=== PATIENT | female | born 1985 | race Caucasian/White ===

== ENCOUNTER 2018-12-12 09:12 | Inpatient (IN) | payer MEDICAID ==
[2018-12-16] MEDS ORDERED: Nalbuphine 20 MG/ML 1 ML Syringe IVPUSH PRN (15:28)
[2018-12-16] MEDS ORDERED: Sodium Chloride 0.9% 10 ML Syringe FLUSH PRN (15:28)
[2018-12-16] MEDS ORDERED: Ondansetron 4 MG/2 ML SDV IVPUSH PRN ×2 (15:28→16:21)
[2018-12-16] MEDS ORDERED: Oxytocin/Lactated Ringers 10 UNIT/1,000 ML BAG IV SCH ×2 (15:30)
--- NOTE | 2018-12-16 15:30 | PCM.LDHP ---
L&D History of Present Illness - General Date of Service: 12/16/18 Admit Problem/Dx: Patient Status Order with Admit Dx/Problem 12/16/18 15:28 Patient Status [ADT] Routine Admission Diagnosis/Problem Admission Diagnosis/Problem Normal Source of Information: Patient History Limitations: Reports: No Limitations - History of Present Illness Introduction:: Patient is a 33 y/o at 40 4/7 wks who presents for IOL. Doing well. 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: 2 LMP (Approximate): Neurological History: Reports: Headaches, Chronic - Infectious Disease History Infectious Disease History: Reports: MRSA - Past Surgical History HEENT Surgical History: Reports: Oral Surgery (tooth extraction) Female Surgical History: Reports: Section Social & Family History - Tobacco Use Smoking Status *Q: Never Smoker - Alcohol Use Alcohol Use History: No - Recreational Drug Use Recreational Drug Use: No H&P Review of Systems - Review of Systems: Review Of Systems: See Below General: Reports: No Symptoms Pulmonary: Reports: No Symptoms Cardiovascular: Reports: No Symptoms Gastrointestinal: Reports: No Symptoms Genitourinary: Reports: No Symptoms Musculoskeletal: Reports: No Symptoms Psychiatric: Reports: No Symptoms Neurological: Reports: No Symptoms L&D Exam - Exam Exam: See Below - OB Specific Contraction Intensity: Irritability Movement: Active Heart Tones: Present Heart Tones per Min: 135 Heart Rate (FHR) Variability: Moderate (6-25 bmp) Presentation: Vertex - Fuentes Score Fuentes Score Cervix Position: Midposition Fuentes Score Consistency: Soft Fuentes Score Effacement: 51-70% Fuentes Score Dilation: 3-4 cm Fuentes Score Infant's Station: -2 Fuentes Score Total: 8 - Exam General: Alert, Oriented, Cooperative Lungs: Clear to Auscultation, Normal Respiratory Effort Cardiovascular: Regular Rate, Regular Rhythm GI/Abdominal Exam: Soft, Non-Tender Genitourinary: Normal external exam Extremities: Normal Inspection Skin: Warm, Dry, Intact - Patient Data Result Diagrams: 12/16/18 15:48 - Problem List (1) 40 weeks gestation of SNOMED Code(s): 31167126 ICD Code: Z3A.40 - 40 WEEKS GESTATION OF Status: Acute Current Visit: Yes (2) History of SNOMED Code(s): 197692126 ICD Code: Z98.891 - HISTORY OF UTERINE SCAR FROM PREVIOUS SURGERY Status: Acute Current Visit: Yes Problem List Initiated/Reviewed/Updated: Yes Orders Last 24hrs: Active Orders 24 hr Category Date Time Status Patient Status [ADT] Routine ADT 12/16/18 15:28 Ordered Communication Order [RC] ASDIRECTED Care 12/16/18 15:28 Ordered Communication Order [RC] ASDIRECTED Care 12/16/18 15:28 Ordered Communication Order [RC] ASDIRECTED Care 12/16/18 15:28 Ordered Heart Tones [RC] ASDIRECTED Care 12/16/18 15:28 Ordered Monitoring [RC] INTERMITTENT Care 12/16/18 15:28 Ordered Non Stress Test [RC] PER UNIT ROUTINE Care 12/16/18 15:28 Ordered Notify Provider [RC] ASDIRECTED Care 12/16/18 15:28 Ordered Notify Provider [RC] PFP Care 12/16/18 15:28 Ordered Notify Provider [RC] PRN Care 12/16/18 15:28 Ordered Peripheral IV Care [RC] . DIRECTED Care 12/16/18 15:28 Ordered Vaginal Exam [RC] ASDIRECTED Care 12/16/18 15:28 Ordered Vital Signs [RC] ASDIRECTED Care 12/16/18 15:28 Ordered Regular Diet [DIET] Diet 12/16/18 Dinner Ordered CBC W/O DIFF,HEMOGRAM [HEME] Routine Lab 12/16/18 15:28 Ordered RAPID PLASMA REAGIN,RPR [CHEM] Routine Lab 12/16/18 15:28 Ordered TYPE AND SCREEN [BBK] Routine Lab 12/16/18 15:28 Ordered Lactated Ringers [Ringers, Lactated] 1,000 ml Med 12/16/18 15:30 Ordered IV ASDIRECTED Nalbuphine [Nubain] Med 12/16/18 15:28 Ordered 10 mg IVPUSH Q2H PRN Ondansetron [Zofran] Med 12/16/18 15:28 Ordered 4 mg IVPUSH Q4H PRN Oxytocin/Lactated Ringers [Pitocin in LR 10 Units/1,000 Med 12/16/18 15:30 Ordered ML] 10 unit in 1,000 ml IV .CONTINUOUS Oxytocin/Lactated Ringers [Pitocin in LR 10 Units/1,000 Med 12/16/18 15:30 Ordered ML] 10 unit in 1,000 ml IV TITRATE Sodium Chloride 0.9% [Saline Flush] Med 12/16/18 15:28 Ordered 10 ml FLUSH ASDIRECTED PRN Electronic Heart Tones Ext w TOCO [WOMSER] Ot 12/16/18 15:28 Ordered Routine Electronic Heart Tones Internal [WOMSER] Per Unit Ot 12/16/18 15:28 Ordered Routine Peripheral IV Insertion Adult [OM.PC] Routine Oth 12/16/18 15:28 Ordered Resuscitation Status Routine Resus Stat 12/16/18 15:28 Ordered Assessment/Plan Comment:: 33 y/o at 40 4/7 wks presents for IOL (hx of for FTP in 1st and then successful ) * Labs * GBS negative, no need for antibiotics * Pitocin and AROM for IOL * Pain management per patient preference * Anticipate
[2018-12-16] MEDS: Lactated Ringers 1,000 ML IV SCH ×3 (15:51→20:29)
[2018-12-16] MEDS ORDERED: fentaNYL 100 MCG/2 ML SDV EPIDUR PRN (16:21)
[2018-12-16] MEDS ORDERED: ePHEDrine 50 MG/ML SDV IVPUSH PRN (16:21)
--- NOTE | 2018-12-16 16:28 | PCM.PREANE ---
Preanesthetic Assessment - Anesthesia/Transfusion/Family Hx Anesthesia History: Prior Anesthesia Without Reaction Family History of Anesthesia Reaction: No Transfusion History: No Prior Transfusion(s) Intubation History: Unknown - Review of Systems General: No Symptoms Pulmonary: No Symptoms Cardiovascular: No Symptoms, Orthopnea (with ) Gastrointestinal: No Symptoms (GERD) Neurological: Headache (migraines) Other: Reports: None, Easy Bruising - Physical Assessment NPO Status Date: 12/16/18 NPO Status Time: 12:00 Pulse: 106 O2 Sat by Pulse Oximetry: 97 Respiratory Rate: 18 Blood Pressure: 138/82 Temperature: 37.2 C Vital Signs: Last Vital Signs Temp 37.2 C 12/16/18 16:11 Pulse Resp 18 12/16/18 16:11 BP 138/82 12/16/18 16:11 Pulse Ox 97 12/16/18 16:11 Height: 1.68 m Weight: 92.986 kg ASA Class: 2 Mental Status: Alert & Oriented x3 Airway Class: Mallampati = 2 Dentition: Reports: Normal Dentition, Caries Thyro-Mental Finger Breadths: 3 Mouth Opening Finger Breadths: 3 ROM/Head Extension: Full Lungs: Clear to Auscultation, Normal Respiratory Effort Cardiovascular: Regular Rate, Regular Rhythm (history of heart murmur/ unable to hear) - Lab Values: Laboratory Last Values WBC 10.93 K/mm3 (3.98-10.04) H 12/16/18 15:48 RBC 4.15 M/mm3 (3.98-5.22) 12/16/18 15:48 Hgb 9.2 gm/L (11.2-15.7) L 12/16/18 15:48 Hct 30.0 % (34.1-44.9) L 12/16/18 15:48 MCV 72.3 fl (79.4-94.8) L 12/16/18 15:48 MCH 22.2 pg (25.6-32.2) L 12/16/18 15:48 MCHC 30.7 g/dl (32.2-35.5) L 12/16/18 15:48 RDW Std Deviation 38.6 fL (36.4-46.3) 12/16/18 15:48 Plt Count 250 K/mm3 (182-369) 12/16/18 15:48 MPV 11.0 fl (9.4-12.3) 12/16/18 15:48 Above labs reviewed and noted and within acceptable ranges to proceed with epidural. - Allergies Allergies/Adverse Reactions: Allergies Allergy/AdvReac Type Severity Reaction Status Date / Time No Known Allergies Allergy Verified 12/16/18 15:44 - Anesthesia Plan Pre-Op Medication Ordered: None - Acknowledgements Anesthesia Type Planned: Epidural Pt an Appropriate Candidate for the Planned Anesthesia: Yes Alternatives and Risks of Anesthesia Discussed w Pt/Guardian: Yes Pt/Guardian Understands and Agrees with Anesthesia Plan: Yes PreAnesthesia Questionnaire - CURRENT (IN HOUSE) MEDS Current Meds: Current Medications Lactated Ringer's (Ringers, Lactated) 1,000 mls @ 40 mls/hr IV ASDIRECTED AHLLE Last Admin: 12/16/18 15:51 Dose: 40 mls/hr Oxytocin/Lactated Ringer's (Pitocin In Lr 10 Units/1,000 Ml) 10 unit in 1,000 mls @ 12 mls/hr IV TITRATE HALLE; Protocol Last Admin: 12/16/18 15:59 Dose: 2 munits/min, 12 mls/hr Oxytocin/Lactated Ringer's (Pitocin In Lr 10 Units/1,000 Ml) 10 unit in 1,000 mls @ 500 mls/hr IV .CONTINUOUS HALLE Nalbuphine HCl (Nubain) 10 mg IVPUSH Q2H PRN PRN Reason: pain Ondansetron HCl (Zofran) 4 mg IVPUSH Q4H PRN PRN Reason: Nausea/Vomiting Sodium Chloride (Saline Flush) 10 ml FLUSH ASDIRECTED PRN PRN Reason: Keep Vein Open
[2018-12-16] MEDS ORDERED: Phenylephrine 1 MG in Sodium Chloride 0.9% 10 ML IV SCH (16:30)
[2018-12-16] MEDS ORDERED: fentaNYL/Bupivacaine-NS 2 MCG/ML-0.125%/PF 100 ML Bag EP SCH (16:30)
[2018-12-16] MEDS ORDERED: Bupivacaine 0.25% 10 ML SDV ONE (17:00)
--- NOTE | 2018-12-16 22:13 | PCM.DEL ---
L & D Note - General Info Date of Service: 12/16/18 - Delivery Note Labor: Induced by ARM, Induced by Oxytocin Delivery Outcome: Livebirth Infant Delivery Method: Spontaneous Vaginal Delivery-Single Infant Delivery Mode: Spontaneous Presentation: Left Occiput Anterior (KORIN) Nuchal Cord: None Anesthesia Type: Epidural Amniotic Fluid Description: Clear Episiotomy Type: None Laceration: 2nd Degree Suture type: Vicryl Placenta: Intact, Spontaneous Cord: 3 Vessels Estimated Blood Loss: 200 : Bulb Syringe, Stimulated, Warmed, Fisher Used, Warmer Used Delivery Comments (Free Text/Narrative):: Patient found to be complete and began pushing. With pushing effort head delivered from KORIN presentation. No nuchal cord present. With gentle downward traction the shoulders and body delivered. placed on maternal abdomen. Cord clamped and cut. Cord blood obtained. Placenta allowed time to separate and expelled intact. Inspection of the perineum showed a 2nd degree laceration which was repaired in the typical fashion. - General Info Date of Service: 12/16/18 - Patient Data Vitals - Most Recent: Last Vital Signs Temp 37.2 C 12/16/18 16:31 Pulse 106 H 12/16/18 16:31 Resp 18 12/16/18 16:31 BP 138/82 12/16/18 16:31 Pulse Ox 97 12/16/18 16:31 Weight - Most Recent: 92.986 kg I&O - Last 24 Hours: Intake & Output 12/16/18 12/16/18 12/16/18 06:59 14:59 22:59 Intake Total 140 Balance 140 Lab Results Last 24 Hours: Laboratory Results - last 24 hr 12/16/18 12/16/18 Range/Units 15:48 15:48 WBC 10.93 H (3.98-10.04) K/mm3 RBC 4.15 (3.98-5.22) M/mm3 Hgb 9.2 L (11.2-15.7) gm/L Hct 30.0 L (34.1-44.9) % MCV 72.3 L (79.4-94.8) fl MCH 22.2 L (25.6-32.2) pg MCHC 30.7 L (32.2-35.5) g/dl RDW Std Deviation 38.6 (36.4-46.3) fL Plt Count 250 (182-369) K/mm3 MPV 11.0 (9.4-12.3) fl Blood Type O POSITIVE Gel Antibody Screen Negative Med Orders - Current: Current Medications Ephedrine Sulfate (Ephedrine Sulfate) 5 mg IVPUSH ASDIRECTED PRN PRN Reason: Hypotension Fentanyl (Sublimaze) 100 mcg EPIDUR Q3H PRN PRN Reason: Pain Last Admin: 12/16/18 19:11 Dose: 100 mcg Fentanyl/Bupivacaine HCl (Uyujeofk-Kljsv-Wg 2 Mcg/Ml-0.125%) 100 ml EP ASDIRECTED HALLE Last Admin: 12/16/18 19:11 Dose: 100 ml Lactated Ringer's (Ringers, Lactated) 1,000 mls @ 40 mls/hr IV ASDIRECTED HALLE Last Admin: 12/16/18 20:29 Dose: 40 mls/hr Oxytocin/Lactated Ringer's (Pitocin In Lr 10 Units/1,000 Ml) 10 unit in 1,000 mls @ 12 mls/hr IV TITRATE HALLE; Protocol Last Titration: 12/16/18 19:05 Dose: 4 munits/min, 24 mls/hr Oxytocin/Lactated Ringer's (Pitocin In Lr 10 Units/1,000 Ml) 10 unit in 1,000 mls @ 500 mls/hr IV .CONTINUOUS HALLE Phenylephrine HCl 1 mg/ Sodium (Chloride) 10.1 mls @ 1 mls/sec IV TITRATE HALLE; Protocol Nalbuphine HCl (Nubain) 10 mg IVPUSH Q2H PRN PRN Reason: pain Ondansetron HCl (Zofran) 4 mg IVPUSH Q4H PRN PRN Reason: Nausea/Vomiting Ondansetron HCl (Zofran) 4 mg IVPUSH ONETIME PRN PRN Reason: Nausea/Vomiting Sodium Chloride (Saline Flush) 10 ml FLUSH ASDIRECTED PRN PRN Reason: Keep Vein Open - Problem List & Annotations (1) 40 weeks gestation of SNOMED Code(s): 16333985 Code(s): Z3A.40 - 40 WEEKS GESTATION OF Status: Acute Current Visit: Yes (2) History of SNOMED Code(s): 579809029 Code(s): Z98.891 - HISTORY OF UTERINE SCAR FROM PREVIOUS SURGERY Status: Acute Current Visit: Yes (3) , delivered, current hospitalization SNOMED Code(s): 946548690 Code(s): O34.219 - MATERNAL CARE FOR UNSP TYPE SCAR FROM PREVIOUS DEL Status: Acute Current Visit: Yes - Problem List Review Problem List Initiated/Reviewed/Updated: Yes - My Orders Last 24 Hours: My Active Orders 12/16/18 15:28 Patient Status [ADT] Routine Communication Order [RC] ASDIRECTED Communication Order [RC] ASDIRECTED Communication Order [RC] ASDIRECTED Heart Tones [RC] ASDIRECTED Monitoring [RC] INTERMITTENT Non Stress Test [RC] PER UNIT ROUTINE Notify Provider [RC] ASDIRECTED Notify Provider [RC] PFP Notify Provider [RC] PRN Vaginal Exam [RC] ASDIRECTED Vital Signs [RC] ASDIRECTED Nalbuphine [Nubain] 10 mg IVPUSH Q2H PRN Ondansetron [Zofran] 4 mg IVPUSH Q4H PRN Sodium Chloride 0.9% [Saline Flush] 10 ml FLUSH ASDIRECTED PRN Electronic Heart Tones Ext w TOCO [WOMSER] Routine Electronic Heart Tones Internal [WOMSER] Per Unit Routine Peripheral IV Insertion Adult [OM.PC] Routine Resuscitation Status Routine 12/16/18 15:30 Lactated Ringers [Ringers, Lactated] 1,000 ml IV ASDIRECTED Oxytocin/Lactated Ringers [Pitocin in LR 10 Units/1,000 ML] 10 unit in 1,000 ml IV .CONTINUOUS Oxytocin/Lactated Ringers [Pitocin in LR 10 Units/1,000 ML] 10 unit in 1,000 ml IV TITRATE 12/16/18 15:48 RAPID PLASMA REAGIN,RPR [CHEM] Routine 12/16/18 22:01 Patient Status Manage Transfer [TRANSFER] Routine 12/16/18 Dinner Regular Diet [DIET] - Assessment Assessment:: 33 y/o G3 now P3003 PPD#0 from at 40 4/7 wks - Plan Plan:: * Routine cares * Encourage breast feeding * Discharge home in 1-2 days
[2018-12-16] MEDS ORDERED: Acetaminophen 325 MG Tab PO PRN (22:26)
[2018-12-16] MEDS ORDERED: Lanolin 100% Cream 7 GM Tube TOP PRN (22:26)
[2018-12-16] MEDS ORDERED: Benzocaine/Menthol 20%-0.5% Spray 56 GM Canister TOP PRN (22:26)
[2018-12-16] MEDS ORDERED: Witch Hazel Medicated Pads 100/Jar TOP PRN (22:26)
[2018-12-16] MEDS ORDERED: Docusate Sodium 100 MG Cap PO PRN (22:26)
[2018-12-16] MEDS: Ibuprofen 600 MG Tab PO PRN (23:32)
--- NOTE | 2018-12-17 06:48 | PCM.PNPP ---
- General Info Date of Service: 12/17/18 Functional Status: Reports: Pain Controlled, Tolerating Diet, Ambulating, Urinating - Review of Systems General: Reports: No Symptoms Pulmonary: Reports: No Symptoms Cardiovascular: Reports: No Symptoms Gastrointestinal: Reports: No Symptoms Genitourinary: Reports: No Symptoms Musculoskeletal: Reports: No Symptoms Neurological: Reports: No Symptoms - Patient Data Vital Signs - Most Recent: Last Vital Signs Temp 36.7 C 12/17/18 03:58 Pulse 60 12/17/18 03:58 Resp 18 12/17/18 03:58 BP 137/80 12/17/18 03:58 Pulse Ox 100 12/17/18 03:58 Weight - Most Recent: 92.986 kg I&O - Last 24 Hours: Intake & Output 12/16/18 12/16/18 12/17/18 14:59 22:59 06:59 Intake Total 4115 Balance 4115 Lab Results - Last 24 Hours: Laboratory Results - last 24 hr 12/16/18 12/16/18 Range/Units 15:48 15:48 WBC 10.93 H (3.98-10.04) K/mm3 RBC 4.15 (3.98-5.22) M/mm3 Hgb 9.2 L (11.2-15.7) gm/L Hct 30.0 L (34.1-44.9) % MCV 72.3 L (79.4-94.8) fl MCH 22.2 L (25.6-32.2) pg MCHC 30.7 L (32.2-35.5) g/dl RDW Std Deviation 38.6 (36.4-46.3) fL Plt Count 250 (182-369) K/mm3 MPV 11.0 (9.4-12.3) fl Blood Type O POSITIVE Gel Antibody Screen Negative Med Orders - Current: Current Medications Acetaminophen (Tylenol) 650 mg PO Q4H PRN PRN Reason: mild pain or fever Benzocaine/Menthol (Dermoplast Pain Relief [place]) 0 gm TOP ASDIRECTED PRN PRN Reason: Perineal Comfort Measure Last Admin: 12/16/18 23:31 Dose: 1 canister Docusate Sodium (Colace) 100 mg PO BID PRN PRN Reason: Constipation Emollient Ointment (Lansinoh Hpa) 0 gm TOP ASDIRECTED PRN PRN Reason: Sore Nipples Ibuprofen (Motrin) 600 mg PO Q6H PRN PRN Reason: Mild pain or fever Last Admin: 12/16/18 23:32 Dose: 600 mg Witch Mary (Tucks) 1 pad TOP ASDIRECTED PRN PRN Reason: Hemorrhoid pain Last Admin: 12/16/18 23:31 Dose: 1 tub Discontinued Medications Ephedrine Sulfate (Ephedrine Sulfate) 5 mg IVPUSH ASDIRECTED PRN PRN Reason: Hypotension Fentanyl (Sublimaze) 100 mcg EPIDUR Q3H PRN PRN Reason: Pain Last Admin: 12/16/18 19:11 Dose: 100 mcg Fentanyl/Bupivacaine HCl (Odhigjox-Lsyby-Cg 2 Mcg/Ml-0.125%) 100 ml EP ASDIRECTED HALLE Last Admin: 12/16/18 19:11 Dose: 100 ml Lactated Ringer's (Ringers, Lactated) 1,000 mls @ 40 mls/hr IV ASDIRECTED HALLE Last Admin: 12/16/18 20:29 Dose: 40 mls/hr Oxytocin/Lactated Ringer's (Pitocin In Lr 10 Units/1,000 Ml) 10 unit in 1,000 mls @ 12 mls/hr IV TITRATE HALLE; Protocol Last Titration: 12/16/18 21:50 Dose: 500 mls/hr Oxytocin/Lactated Ringer's (Pitocin In Lr 10 Units/1,000 Ml) 10 unit in 1,000 mls @ 500 mls/hr IV .CONTINUOUS HALLE Phenylephrine HCl 1 mg/ Sodium (Chloride) 10.1 mls @ 1 mls/sec IV TITRATE HALLE; Protocol Nalbuphine HCl (Nubain) 10 mg IVPUSH Q2H PRN PRN Reason: pain Ondansetron HCl (Zofran) 4 mg IVPUSH Q4H PRN PRN Reason: Nausea/Vomiting Ondansetron HCl (Zofran) 4 mg IVPUSH ONETIME PRN PRN Reason: Nausea/Vomiting Sodium Chloride (Saline Flush) 10 ml FLUSH ASDIRECTED PRN PRN Reason: Keep Vein Open - Interaction Infant Disposition, : in Room with Family Infant Interaction: Holding Infant Infant Feeding: Breastfed Infant; Nursed Well Support Person: - Recovery Exam Fundal Tone: Firm Fundal Level: 1 Fingerbreadths Below Umbilicus Fundal Placement: Midline Lochia Amount: Small Lochia Color: Rubra/Red Bladder Status: Voiding Urinary Elimination: Voided - Exam General: Alert, Oriented, Cooperative GI/Abdominal Exam: Soft, Non-Tender Extremities: Normal Inspection Skin: Warm, Dry, Intact - Problem List & Annotations (1) 40 weeks gestation of SNOMED Code(s): 46885459 Code(s): Z3A.40 - 40 WEEKS GESTATION OF Status: Acute Current Visit: Yes (2) History of SNOMED Code(s): 951784134 Code(s): Z98.891 - HISTORY OF UTERINE SCAR FROM PREVIOUS SURGERY Status: Acute Current Visit: Yes (3) , delivered, current hospitalization SNOMED Code(s): 872815962 Code(s): O34.219 - MATERNAL CARE FOR UNSP TYPE SCAR FROM PREVIOUS DEL Status: Acute Current Visit: Yes - Problem List Review Problem List Initiated/Reviewed/Updated: Yes - My Orders Last 24 Hours: My Active Orders 12/16/18 15:28 Communication Order [RC] ASDIRECTED Communication Order [RC] ASDIRECTED Communication Order [RC] ASDIRECTED Heart Tones [RC] ASDIRECTED Monitoring [RC] INTERMITTENT Notify Provider [RC] ASDIRECTED Notify Provider [RC] PFP Notify Provider [RC] PRN Vaginal Exam [RC] ASDIRECTED Resuscitation Status Routine 12/16/18 15:48 RAPID PLASMA REAGIN,RPR [CHEM] Routine 12/16/18 22:26 Activity as Tolerated [RC] PER UNIT ROUTINE Vital Signs [RC] 21,03,09,15 Acetaminophen [Tylenol] 650 mg PO Q4H PRN Benzocaine/Menthol [Dermoplast Pain Relief [place]] See Dose Instructions TOP ASDIRECTED PRN Docusate Sodium [Colace] 100 mg PO BID PRN Ibuprofen [Motrin] 600 mg PO Q6H PRN Lanolin [Lansinoh HPA] See Dose Instructions TOP ASDIRECTED PRN Witch Mary [Tucks] 1 pad TOP ASDIRECTED PRN Assess Lochia [WOMSER] Per Unit Routine Assess Uterine Involution [WOMSER] Per Unit Routine Breast Pump [WOMSER] Per Unit Routine Heat Therapy [OM.PC] PRN Ice Therapy [OM.PC] Per Unit Routine Perineal Care [OM.PC] Per Unit Routine Peripheral IV Discontinue [OM.PC] Routine Sitz Bath [OM.PC] Per Unit Routine 12/16/18 Breakfast Regular Diet [DIET] 12/17/18 22:26 Heat Therapy [OM.PC] PRN - Assessment Assessment:: 33 y/o G3 now P3003 PPD#1 from at 40 4/7 wks - Plan Plan:: * Routine cares * Encourage breast feeding * Discharge home tomorrow
[2018-12-17] MEDS: Ibuprofen 600 MG Tab PO PRN ×3 (07:05→18:39)
--- NOTE | 2018-12-18 05:14 | PCM.PNPP ---
- General Info Date of Service: 12/18/18 Functional Status: Reports: Pain Controlled, Tolerating Diet, Ambulating, Urinating - Review of Systems General: Reports: No Symptoms Pulmonary: Reports: No Symptoms Cardiovascular: Reports: No Symptoms Gastrointestinal: Reports: No Symptoms Genitourinary: Reports: No Symptoms Musculoskeletal: Reports: No Symptoms Neurological: Reports: No Symptoms - Patient Data Vital Signs - Most Recent: Last Vital Signs Temp 36.8 C 12/18/18 03:00 Pulse 73 12/18/18 03:00 Resp 16 12/18/18 03:00 BP 121/81 12/18/18 03:00 Pulse Ox 99 12/18/18 03:00 Weight - Most Recent: 92.986 kg I&O - Last 24 Hours: Intake & Output 12/17/18 12/17/18 12/18/18 14:59 22:59 06:59 Intake Total 360 Balance 360 Lab Results - Last 24 Hours: Laboratory Results - last 24 hr 12/16/18 Range/Units 15:48 RPR Non-reactive (NONREACTIVE) Med Orders - Current: Current Medications Acetaminophen (Tylenol) 650 mg PO Q4H PRN PRN Reason: mild pain or fever Benzocaine/Menthol (Dermoplast Pain Relief [place]) 0 gm TOP ASDIRECTED PRN PRN Reason: Perineal Comfort Measure Last Admin: 12/16/18 23:31 Dose: 1 canister Docusate Sodium (Colace) 100 mg PO BID PRN PRN Reason: Constipation Emollient Ointment (Lansinoh Hpa) 0 gm TOP ASDIRECTED PRN PRN Reason: Sore Nipples Ibuprofen (Motrin) 600 mg PO Q6H PRN PRN Reason: Mild pain or fever Last Admin: 12/17/18 18:39 Dose: 600 mg Witch Mary (Tucks) 1 pad TOP ASDIRECTED PRN PRN Reason: Hemorrhoid pain Last Admin: 12/16/18 23:31 Dose: 1 tub Discontinued Medications Ephedrine Sulfate (Ephedrine Sulfate) 5 mg IVPUSH ASDIRECTED PRN PRN Reason: Hypotension Fentanyl (Sublimaze) 100 mcg EPIDUR Q3H PRN PRN Reason: Pain Last Admin: 12/16/18 19:11 Dose: 100 mcg Fentanyl/Bupivacaine HCl (Aqycjkbe-Yvcbl-Jc 2 Mcg/Ml-0.125%) 100 ml EP ASDIRECTED HALLE Last Admin: 12/16/18 19:11 Dose: 100 ml Lactated Ringer's (Ringers, Lactated) 1,000 mls @ 40 mls/hr IV ASDIRECTED HALLE Last Admin: 12/16/18 20:29 Dose: 40 mls/hr Oxytocin/Lactated Ringer's (Pitocin In Lr 10 Units/1,000 Ml) 10 unit in 1,000 mls @ 12 mls/hr IV TITRATE HALLE; Protocol Last Titration: 12/16/18 21:50 Dose: 500 mls/hr Oxytocin/Lactated Ringer's (Pitocin In Lr 10 Units/1,000 Ml) 10 unit in 1,000 mls @ 500 mls/hr IV .CONTINUOUS HALLE Phenylephrine HCl 1 mg/ Sodium (Chloride) 10.1 mls @ 1 mls/sec IV TITRATE HALLE; Protocol Nalbuphine HCl (Nubain) 10 mg IVPUSH Q2H PRN PRN Reason: pain Ondansetron HCl (Zofran) 4 mg IVPUSH Q4H PRN PRN Reason: Nausea/Vomiting Ondansetron HCl (Zofran) 4 mg IVPUSH ONETIME PRN PRN Reason: Nausea/Vomiting Sodium Chloride (Saline Flush) 10 ml FLUSH ASDIRECTED PRN PRN Reason: Keep Vein Open - Infant Interaction Disposition, : [place] in Room with Family Interaction: Holding Infant Feeding: Breastfed Infant; Nursed Well Support Person: - Recovery Exam Fundal Tone: Firm Fundal Level: 1 Fingerbreadths Below Umbilicus Fundal Placement: Midline Lochia Amount: Scant Lochia Color: Rubra/Red Perineum Description: Other (see below) Other Perinuem Description: 2 nd degree with repair Episiotomy/Laceration: Approximated Bladder Status: Voiding Urinary Elimination: Voided - Exam General: Alert, Oriented, Cooperative GI/Abdominal Exam: Soft, Non-Tender Extremities: Normal Inspection, Pedal Edema Skin: Warm, Dry, Intact - Problem List & Annotations (1) 40 weeks gestation of SNOMED Code(s): 66490848 Code(s): Z3A.40 - 40 WEEKS GESTATION OF Status: Acute Current Visit: Yes (2) History of SNOMED Code(s): 897608706 Code(s): Z98.891 - HISTORY OF UTERINE SCAR FROM PREVIOUS SURGERY Status: Acute Current Visit: Yes (3) , delivered, current hospitalization SNOMED Code(s): 722815585 Code(s): O34.219 - MATERNAL CARE FOR UNSP TYPE SCAR FROM PREVIOUS DEL Status: Acute Current Visit: Yes - Problem List Review Problem List Initiated/Reviewed/Updated: Yes - My Orders Last 24 Hours: My Active Orders 12/17/18 22:26 Heat Therapy [OM.PC] PRN - Assessment Assessment:: 33 y/o G3 now P3003 PPD#2 from at 40 4/7 wks - Plan Plan:: * Routine cares * Encourage breast feeding * Discharge home today
--- NOTE | 2018-12-18 05:15 | PCM.DCSUM1 ---
Discharge Summary - Discharge Data Discharge Date: 12/18/18 Discharge Disposition: Home, Self-Care 01 Condition: Good - Discharge Diagnosis/Problem(s) (1) 40 weeks gestation of SNOMED Code(s): 90682855 ICD Code: Z3A.40 - 40 WEEKS GESTATION OF Status: Acute Current Visit: Yes (2) History of SNOMED Code(s): 363466281 ICD Code: Z98.891 - HISTORY OF UTERINE SCAR FROM PREVIOUS SURGERY Status: Acute Current Visit: Yes (3) , delivered, current hospitalization SNOMED Code(s): 793646314 ICD Code: O34.219 - MATERNAL CARE FOR UNSP TYPE SCAR FROM PREVIOUS DEL Status: Acute Current Visit: Yes - Patient Summary/Data Complications: None Consults: None Recommended Follow-up Testing/Procedures: Follow up in 3-6 weeks for check Hospital Course: 33 y/o at 40 4/7 wks presented for IOL. Hx of then successful . IOL done with pitocin and AROM. She progressed well to complete dilation and underwent an uncomplicated . See delivery note. she did well and was discharged home on PPD#2 - Patient Instructions Diet: Regular Diet as Tolerated Activity: As Tolerated Activity, Other: Pelvic Rest for 6 weeks Driving: May Drive Today Showering/Bathing: May Shower Showering/Bathing, Other: May Bathe Notify Provider of: Fever, Increased Pain, Swelling and Redness, Drainage, Nausea and/or Vomiting - Discharge Plan *PRESCRIPTION DRUG MONITORING PROGRAM REVIEWED*: Not Applicable *COPY OF PRESCRIPTION DRUG MONITORING REPORT IN PATIENT CHERYLE: Not Applicable Home Medications: Home Meds Docusate Sodium [Colace] 100 mg PO BID PRN cap 12/17/18 [Rx] Ibuprofen [Motrin] 600 mg PO Q6H PRN tablet 12/17/18 [Rx] Referrals: Zonia Batista MD [Primary Care Provider] - (3-6 weeks for check) - Discharge Summary/Plan Comment DC Time >30 min.: No - Patient Data Vitals - Most Recent: Last Vital Signs Temp 36.8 C 12/18/18 03:00 Pulse 73 12/18/18 03:00 Resp 16 12/18/18 03:00 BP 121/81 12/18/18 03:00 Pulse Ox 99 12/18/18 03:00 Weight - Most Recent: 92.986 kg I&O - Last 24 hours: Intake & Output 12/17/18 12/17/18 12/18/18 14:59 22:59 06:59 Intake Total 360 Balance 360 Lab Results - Last 24 hrs: Laboratory Results - last 24 hr 12/16/18 Range/Units 15:48 RPR Non-reactive (NONREACTIVE) Med Orders - Current: Current Medications Acetaminophen (Tylenol) 650 mg PO Q4H PRN PRN Reason: mild pain or fever Benzocaine/Menthol (Dermoplast Pain Relief [place]) 0 gm TOP ASDIRECTED PRN PRN Reason: Perineal Comfort Measure Last Admin: 12/16/18 23:31 Dose: 1 canister Docusate Sodium (Colace) 100 mg PO BID PRN PRN Reason: Constipation Emollient Ointment (Lansinoh Hpa) 0 gm TOP ASDIRECTED PRN PRN Reason: Sore Nipples Ibuprofen (Motrin) 600 mg PO Q6H PRN PRN Reason: Mild pain or fever Last Admin: 12/17/18 18:39 Dose: 600 mg [place] (Tucks) 1 pad TOP ASDIRECTED PRN PRN Reason: Hemorrhoid pain Last Admin: 12/16/18 23:31 Dose: 1 tub Discontinued Medications Ephedrine Sulfate (Ephedrine Sulfate) 5 mg IVPUSH ASDIRECTED PRN PRN Reason: Hypotension Fentanyl (Sublimaze) 100 mcg EPIDUR Q3H PRN PRN Reason: Pain Last Admin: 12/16/18 19:11 Dose: 100 mcg Fentanyl/Bupivacaine HCl (Vghnlxys-Zeoeq-Ys 2 Mcg/Ml-0.125%) 100 ml EP ASDIRECTED HALLE Last Admin: 12/16/18 19:11 Dose: 100 ml Lactated Ringer's (Ringers, Lactated) 1,000 mls @ 40 mls/hr IV ASDIRECTED HALLE Last Admin: 12/16/18 20:29 Dose: 40 mls/hr Oxytocin/Lactated Ringer's (Pitocin In Lr 10 Units/1,000 Ml) 10 unit in 1,000 mls @ 12 mls/hr IV TITRATE HALLE; Protocol Last Titration: 12/16/18 21:50 Dose: 500 mls/hr Oxytocin/Lactated Ringer's (Pitocin In Lr 10 Units/1,000 Ml) 10 unit in 1,000 mls @ 500 mls/hr IV .CONTINUOUS HALLE Phenylephrine HCl 1 mg/ Sodium (Chloride) 10.1 mls @ 1 mls/sec IV TITRATE HALLE; Protocol Nalbuphine HCl (Nubain) 10 mg IVPUSH Q2H PRN PRN Reason: pain Ondansetron HCl (Zofran) 4 mg IVPUSH Q4H PRN PRN Reason: Nausea/Vomiting Ondansetron HCl (Zofran) 4 mg IVPUSH ONETIME PRN PRN Reason: Nausea/Vomiting Sodium Chloride (Saline Flush) 10 ml FLUSH ASDIRECTED PRN PRN Reason: Keep Vein Open
[2018-12-18] MEDS: Ibuprofen 600 MG Tab PO PRN (06:57)
== END 2018-12-18 10:02 | disposition home or self-care (01) | DRG 807 ==
LOC: EDSTATUS 14:59 → JD.OB 12-16 15:06 → OBSVTOIN 12-16 21:45 → JD.OB 12-16 21:45
PROVIDERS: ADMIT Obstetrics & Gynecology; ATTEND Obstetrics & Gynecology
PROC: 10E0XZZ Delivery of Products of Conception, External Approach (ICD-10-PCS; principal; 2018-12-16)
PROC: 3E033VJ Introduction of Other Hormone into Peripheral Vein, Percutaneous Approach (ICD-10-PCS; principal; 2018-12-16)
PROC: 10907ZC Drainage of Amniotic Fluid, Therapeutic from Products of Conception, Via Natural or Artificial Opening (ICD-10-PCS; principal; 2018-12-16)
PROC: 6A550ZT Pheresis of Cord Blood Stem Cells, Single (ICD-10-PCS; principal; 2018-12-16)
PROC: 0KQM0ZZ Repair Perineum Muscle, Open Approach (ICD-10-PCS; principal; 2018-12-16)
PROC: 00HU33Z Insertion of Infusion Device into Spinal Canal, Percutaneous Approach (ICD-10-PCS; 2018-12-16)
PROC: 3E0R3BZ Introduction of Anesthetic Agent into Spinal Canal, Percutaneous Approach (ICD-10-PCS; 2018-12-16)
DX: O34.219 Maternal care for unspecified type scar from previous cesarean delivery (principal); Z37.0 Single live birth; N85.8 Other specified noninflammatory disorders of uterus; Z3A.40 40 weeks gestation of pregnancy; O48.0 Post-term pregnancy; O70.1 Second degree perineal laceration during delivery; O99.62 Diseases of the digestive system complicating childbirth; K21.9 Gastro-esophageal reflux disease without esophagitis; Z86.14 Personal history of Methicillin resistant Staphylococcus aureus infection
CPT/HCPCS: 36415; 51702; 59025; 59409; 85027; 86592; 86850; 86900; 86901; A9270-GY; J2590; J3010; J3490; J7120